=== PATIENT | female | born 1970 | race Caucasian/White ===

== ENCOUNTER 2016-11-14 20:30 | Emergency (ER) | payer OTHER ==
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
[~2016-11-14 20:30] MED LIST: ALLEVE; ALPRAZOLAM PO; AMOXIL875 MG PO; AUGMENTIN875 MG PO; AURALGAN EAR DR14 ML OT; BACLOFEN10 MG PO; BENZONATATE PO; CENTRUM PO; CIPRO HC OTIC S10 ML AS; CIPRO PO; CORTISPORI10 ML OTIC AD; CORTISPORI10 ML OTIC AU; DICLOFENAC PO; EPIPEN0.3 MG/0.1 IM; FAMOTIDINE PO; FLEXERIL PO; FLEXERIL10 MG PO; IBUPROFEN PO; IBUPROFEN600 MG PO; IBUPROFEN800 MG; LORTAB 101 TAB 10/5 DOB; MOBIC15 MG PO; MOTRIN600 MG PO; NO MEDICATIONS; PEN-VEE K PO; PEPCID PO; PREDNISONE PO; PYRIDIUM PO; TYLENOL #3 PO; ULTRAM; ULTRAM PO; VICODIN 5/500 T1 TAB PO; VOLTAREN50 MG PO; VOLTAREN75 MG PO; ZITHROMAX PO
[2016-11-14] MEDS ORDERED: LYRICA75 MG PO (21:03)
== END 2016-11-14 22:54 | disposition home or self-care (01) ==
LOC: SED 20:30
DX: S16.1XXA Strain of muscle, fascia and tendon at neck level, initial encounter (principal); R51 Headache; Z88.5 Allergy status to narcotic agent; Z79.899 Other long term (current) drug therapy; V49.40XA Driver injured in collision with unspecified motor vehicles in traffic accident, initial encounter; Y92.488 Other paved roadways as the place of occurrence of the external cause
CPT/HCPCS: 70450; 99284